=== PATIENT | female | born 1945 | race Caucasian/White ===

== ENCOUNTER 2017-04-21 09:32 | Emergency (ER) | payer MEDICARE, BC ==
[2017-04-21 10:09] LABS: URINE APPEARANCE SL CLOUDY; URINE BILIRUBIN NEGATIVE (NEGATIVE); URINE BLOOD NEGATIVE (NEGATIVE); URINE COLOR YELLOW; URINE GLUCOSE (UA) NEGATIVE (NEGATIVE); URINE KETONE NEGATIVE (NEGATIVE); URINE LEUKOCYTE ESTERASE TRACE (NEGATIVE); URINE NITRITE NEGATIVE (NEGATIVE); URINE PROTEIN NEGATIVE (NEGATIVE); URINE UROBILINOGEN 0.2 E.U./dL (0.20 - 1.00)
[2017-04-21 10:19] LABS: URINE EPITHELIAL CELLS 0 - 2 (FEW); URINE RBC NONE SEEN (NONE SEEN); URINE WBC 0 - 2 (0-2/hpf)
[2017-04-21 10:20] LABS: URINE BACTERIA NONE SEEN
--- NOTE | 2017-04-21 10:20 | Emergency Department Record ---
History of Present Illness - General Chief Complaint: Back Pain/Injury Stated Complaint: R SIDE/ BACK PAIN Time Seen by Provider: 04/21/17 10:13 Source: Patient, RN notes reviewed - History of Present Illness Initial Comments: right flank pain and finished antibotic apr 11 for a UTI (macrobid) . 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 Patient had a tylenal #3 her 's medication and the pain felt better. Patient moving slowly and worse with bending over and the pain is located in the right L2 area to L5 area of the back. Onset/Timin -: Days(s) Severity: Moderate Severity scale (1-10): 10 Quality: Aching Consistency: Constant, Getting worse Improves With: Other Worsens With: Sitting upright - Related Data Previous Rx's Medication Instructions Recorded Acetaminop W/ Codeine 300/30Mg 1 tab PO Q4H #30 tab 04/21/17 [Tylenol #3] Cyclobenzaprine HCl [Flexeril] 5 mg PO TID #30 tab 04/21/17 Cyclobenzaprine HCl [Flexeril] 5 mg PO TID #30 tablet 04/21/17 Allergies Allergy/AdvReac Type Severity Reaction Status Date / Time Sulfa (Sulfonamide AdvReac HYPERSENSIT Verified 04/21/17 09:49 Antibiotics) IVITY Travel Screening - Travel/Exposure Within Last 30 Days Have you traveled within the last 30 days?: No - Travel/Exposure Within Last Year Have you traveled outside the [place] in the last year?: No - Additonal Travel Details Have you been exposed to anyone with a communicable illness?: No - Travel Symptoms Symptom Screening: None Review of Systems Reviewed: No additional complaints except as noted below Constitutional: Reports: As per HPI. Denies: Chills, Fever, Malaise, Night sweats, Weakness, Weight change Eyes: Reports: As per HPI. Denies: Eye discharge, Eye pain, Photophobia, Vision change ENT: Reports: As per HPI. Denies: Congestion, Dental pain, Ear pain, Epistaxis , Hearing loss, Throat pain Respiratory: Reports: As per HPI. Denies: Cough, Dyspnea, Hemoptysis, Stridor, Wheezes Cardiovascular: Reports: As per HPI. Denies: Arrhythmia, Chest pain, Dyspnea on exertion, Edema, Murmurs, Orthopnea, Palpitations, Paroxysmal nocturnal dyspnea, Rheumatic Fever, Syncope Endocrine: Reports: As per HPI. Denies: Fatigue, Heat or cold intolerance, Polydipsia, Polyuria Gastrointestinal: Reports: As per HPI. Denies: Abdominal pain, Constipation, Diarrhea, Hematemesis, Hematochezia, Melena, Nausea, Vomiting Genitourinary: Reports: As per HPI. Denies: Abnormal menses, Discharge, Dyspareunia, Dysuria, Frequency, Hematuria, Incontinence, Retention, Urgency Musculoskeletal: Reports: As per HPI, Back pain. Denies: Arthralgia, Gout, Joint swelling, Myalgia, Neck pain Skin: Reports: As per HPI. Denies: Bruising, Change in color, Change in hair/ nails, Lesions, Pruritus, Rash Neurological: Reports: As per HPI. Denies: Abnormal gait, Confusion, Headache, Numbness, Paresthesias, Seizure, Tingling, Tremors, Vertigo, Weakness Psychiatric: Reports: As per HPI. Denies: Anxiety, Auditory hallucinations, Depression, Homicidal thoughts, Suicidal thoughts, Visual hallucinations Hematological/Lymphatic: Reports: As per HPI. Denies: Anemia, Blood Clots, Easy bleeding, Easy bruising, Swollen glands Past Medical History - SOCIAL HISTORY Smoking Status: Former smoker Alcohol Use: Occasional Drug Use: None - RESPIRATORY Hx Respiratory Disorders: No - CARDIOVASCULAR Hx Cardio Disorders: Yes Hx Deep Vein Thrombosis: Yes (LLE) - NEURO Hx Headaches: Yes - GI Hx GI Disorders: No - Hx Genitourinary Disorders: No - ENDOCRINE Hx Endocrine Disorders: No - MUSCULOSKELETAL Hx Arthritis: Yes Hx Osteoporosis: Yes - PSYCH Hx Psych Problems: No - HEMATOLOGY/ONCOLOGY Hx Hematology/Oncology Disorders: No Family Medical History Any Significant Family History?: Yes Physical Exam - General General Appearance: Alert, Oriented x3, Cooperative, Mild distress - Head Head exam: Normal inspection - Eye Eye exam: Normal appearance, PERRL Pupils: Normal accommodation - ENT ENT exam: Normal exam, Mucous membranes moist, Normal external ear exam, Normal orophraynx, TM's normal bilaterally Ear exam: Normal external inspection. negative: External canal tenderness Nasal Exam: Normal inspection. negative: Discharge, Sinus tenderness Mouth exam: Normal external inspection, Tongue normal Teeth exam: Normal inspection. negative: Dental caries Throat exam: Normal inspection. negative: Tonsillar erythema, Tonsillar exudate - Neck Neck exam: Normal inspection, Full ROM. negative: Tenderness - Respiratory Respiratory exam: Normal lung sounds bilaterally. negative: Respiratory distress - Cardiovascular Cardiovascular Exam: Regular rate, Normal rhythm, Normal heart sounds - GI/Abdominal GI/Abdominal exam: Soft, Normal bowel sounds. negative: Tenderness - Rectal Rectal exam: Deferred - exam: Deferred - Extremities Extremities exam: Normal inspection, Full ROM, Normal capillary refill. negative: Tenderness - Back Back exam: Reports: Normal inspection, Full ROM, Muscle spasm, Paraspinal tenderness, Tenderness. Denies: Rash noted - Neurological Neurological exam: Alert, Normal gait, Oriented X3, Reflexes normal - Psychiatric Psychiatric exam: Normal affect, Normal mood - Skin Skin exam: Dry, Intact, Normal color, Warm Course Vital Signs 04/21/17 09:38 Temperature 97.7 F Pulse Rate 71 Respiratory 16 Rate Blood Pressure 147/79 Pulse Ox 100 patient wants pills instead of a shot for her back pain and she is on elliquis for a DVT in the left leg one month ago. Medical Decision Making - Lab Data Lab Results 04/21/17 Range/Units 10:07 Urine Color Yellow Urine Appearance Sl cloudy Urine pH 7.0 (5.0-8.0) Ur Specific [place] 1.010 (1.002-1.030) Urine Protein Negative (NEGATIVE) Urine Glucose (UA) Negative (NEGATIVE) Urine Ketones Negative (NEGATIVE) Urine Blood Negative (NEGATIVE) Urine Nitrite Negative (NEGATIVE) Urine Bilirubin Negative (NEGATIVE) Urine Urobilinogen 0.2 (0.20 - 1.00) E.U./dL Ur Leukocyte Esterase Trace H (NEGATIVE) Disposition Clinical Impression: Lumbar strain Qualifiers: Encounter type: initial encounter Qualified Code(s): S39.012A - Strain of muscle, fascia and tendon of lower back, initial encounter Disposition: Home, Self-Care Condition: (1) Good Instructions: Low Back Strain (ED) Additional Instructions: follow up with family in one week Prescriptions: Acetaminop W/ Codeine 300/30Mg [Tylenol #3] 1 tab PO Q4H #30 tab Cyclobenzaprine HCl [Flexeril] 5 mg PO TID #30 tablet Cyclobenzaprine HCl [Flexeril] 5 mg PO TID #30 tab Forms: Patient Portal Access Time of Disposition: 10:42 Quality - Quality Measures Quality Measures: N/A - Blood Pressure Screening Does Patient Have Any of the Following: No Blood Pressure Classification: Hypertensive Reading Systolic Measurement: 147 Diastolic Measurement: 79 Screening for High Blood Pressure: < First Hypertensive BP, F/U Documented > [ G8950] First Hypertensive Follow-up Interventions: Referral to alternative/primary care provider.
== END 2017-04-21 10:54 | disposition home or self-care (01) ==
LOC: ER 09:32
DX: S39.012A Strain of muscle, fascia and tendon of lower back, initial encounter (principal); X50.0XXA Overexertion from strenuous movement or load, initial encounter; Y90.0 Blood alcohol level of less than 20 mg/100 ml; Z79.01 Long term (current) use of anticoagulants
CPT/HCPCS: 81001; 99282

== ENCOUNTER 2017-10-11 06:28 | Day surgery (SDC) | payer MEDICARE, BC ==
[2017-10-11] MEDS ORDERED: PROPOFOL 10 MG/ML VIAL IV ONE (06:29)
[2017-10-11] MEDS ORDERED: LIDOCAINE 2% MDV (20MG/ML) 20ML VIAL IV ONE (06:29)
--- NOTE | 2017-10-14 13:30 | Operative Note ---
DATE OF SERVICE: 10/11/2017. DATE OF SURGERY: 10/11/2017. REQUESTING PHYSICIAN: Joseph Rome MD. Surgeon: Sascha Wick MD. OPERATION: Colonoscopy. Indication for Procedure: This is a 71-year-old female with average risk for colorectal cancer, who presented for subsequent screening colonoscopy. POSTOPERATIVE DIAGNOSES: 1. Suboptimal bowel preparation. 2. Left-sided colonic diverticulosis.3. Grade 1 internal hemorrhoids. SEDATION: Sedation is per Anesthesia. Pulse oximetry was monitored throughout the duration of the procedure to maintain O2 saturation of 90% or greater. Supplemental oxygen was administered via nasal cannula. Cardiac and vital signs were monitored throughout the duration of the procedure, and they were stable. PROCEDURE: The general procedure of colonoscopy, risks and alternatives to the procedure, including the risks of bleeding and perforation among others, were explained to the patient; she voiced understanding and agrees to have the procedure done. Physical examination was performed. She was found stable for sedation. The patient was then placed in the left lateral position and sedation was initiated. Digital rectal exam was performed and showed small external hemorrhoids with no palpable rectal masses. An Olympus PCF1 80AL colonoscope was then inserted into the rectum and under direct visualization was advanced to the cecum without difficulty. The ileocecal valve and appendiceal orifice were identified and photographed. The colonic mucosa was carefully examined upon introduction of the colonoscope. There were scattered diverticula noted in the sigmoid and descending colon. The bowel preparation was, however, suboptimal, especially in the right colon, but enough to rule out any significant lesions. The colonoscope was then withdrawn very carefully, re-examining the colonic mucosal surfaces. No other lesions were noted. In the rectum, retroflexion maneuver was performed, and Grade 1 internal hemorrhoids were noted. The colonoscope was then withdrawn, and the procedure was terminated. The patient tolerated the procedure well, without immediate complications. She remained with stable vital signs and was transferred into the recovery room. PLAN AND RECOMMENDATIONS:1. Patient is to be on a high fiber diet.2. She is to have repeat colonoscopy for screening in 10 years.Thank you for allowing me to participate in the care of your patient. CC: MD Joseph Nava MD [facility] CENTERFannie
== END 2017-10-11 08:43 | disposition home or self-care (01) ==
LOC: HOP 06:28
PROVIDERS: ATTEND Internal Medicine Gastroenterology
DX: Z12.11 Encounter for screening for malignant neoplasm of colon (principal); K57.90 Diverticulosis of intestine, part unspecified, without perforation or abscess without bleeding; K64.8 Other hemorrhoids
CPT/HCPCS: 00812; G0121

== ENCOUNTER 2017-12-09 06:18 | Emergency (ER) | payer MEDICARE, BC ==
--- NOTE | 2017-12-09 06:38 | Emergency Department Record ---
History of Present Illness - General Chief complaint: Bite Insect/other Stated complaint: BUG BITE LEFT ANKLE Time Seen by Provider: 12/09/17 06:26 Source: Patient Mode of Arrival: Ambulatory Limitations: No limitations - History of Present Illness Initial comments: The patient noticed a wound to the L medial ankle about 2 weeks ago while [place] over [place] weekend. She states she looked down and pulled a white scab off the area. The area then became more painful and she was seen at the about 10 days ago and treated with Mupirocin ointment and oral doxycycline. Now the area appears to be getting more painful and swollen. There has been no fever , chills, or drainage from the wound. MD complaint: Insect bite/sting, Rash Onset/Timin -: Week(s) Severity: Mild - Related Data Previous Rx's Medication Instructions Recorded Clindamycin HCl [Cleocin HCl] 300 mg PO QID #28 capsule 12/09/17 Allergies Allergy/AdvReac Type Severity Reaction Status Date / Time Sulfa (Sulfonamide AdvReac "they just Unverified 12/10/17 16:42 Antibiotics) don't work on me" Travel Screening - Travel/Exposure Within Last 30 Days Have you traveled within the last 30 days?: No - Travel/Exposure Within Last Year Have you traveled outside the [place] in the last year?: No - Additonal Travel Details Have you been exposed to anyone with a communicable illness?: No - Travel Symptoms Symptom Screening: None Review of Systems Constitutional: Denies: Chills, Fever Eyes: Denies: Eye discharge Past Medical History - SOCIAL HISTORY Smoking Status: Former smoker Alcohol Use: Occasional Drug Use: None - RESPIRATORY Hx Respiratory Disorders: No - CARDIOVASCULAR Hx Cardio Disorders: Yes Hx Deep Vein Thrombosis: Yes (LLE) - NEURO Hx Headaches: Yes - GI Hx GI Disorders: No - Hx Genitourinary Disorders: No - ENDOCRINE Hx Endocrine Disorders: No - MUSCULOSKELETAL Hx Arthritis: Yes Hx Osteoporosis: Yes - PSYCH Hx Psych Problems: No - HEMATOLOGY/ONCOLOGY Hx Hematology/Oncology Disorders: No Family Medical History Any Significant Family History?: No Physical Exam - General General Appearance: Alert, Oriented x3, Cooperative, No acute distress - Head Head exam: Atraumatic, Normocephalic - Eye Eye exam: Normal appearance, PERRL - Extremities Extremities exam: Full ROM, Tenderness, Other (There is no lymphangitis or erythematous streaking up the leg from the ankle. The L foot is NVI. ). negative: Normal inspection (There is a 3 mm circular superficial wound to the skin just posterior to the medial malleolus. There is 1 cm of surrounding erythema present. There is signficant tenderness present around the superficial wound. ), Calf tenderness, Joint swelling (There is no joint swelling or effusion.), Pedal edema Image of Feet: 1 - Area of central wound with 1 cm of surrounding erythema. Course Vital Signs 12/09/17 06:25 Temperature 98.3 F Pulse Rate [ 67 Pulse Ox Probe] Respiratory 18 Rate Blood Pressure 166/81 [Left Arm] Pulse Ox 98 - Reevaluation(s) Reevaluation #1: I did discuss the need to place the patient on oral Clindamycin and to continue the Abx cream. She is to see her family doctor for recheck later this week. 12/09/17 06:43 Disposition Disposition: Discharge Clinical Impression: Wound of skin Disposition: Home, Self-Care Condition: (2) Stable Instructions: Insect Bite or Sting (ED) Additional Instructions: Please take the oral Clindamycin as directed and continue to use the antibiotic cream. Please see your family doctor later this week for recheck and for possible further testing. Prescriptions: Clindamycin HCl [Cleocin HCl] 300 mg PO QID #28 capsule Forms: Patient Portal Access Time of Disposition: 06:45 Quality - Quality Measures Quality Measures: N/A - Blood Pressure Screening View Details: Yes Does Patient Have Any of the Following: No Blood Pressure Classification: Normal BP Reading Systolic Measurement: 119 Diastolic Measurement: 72 Screening for High Blood Pressure: < Normal BP, F/U Not Required > [G8783]
[2017-12-09] MEDS ORDERED: CLINDAMYCIN 600MG/50ML PREMIX 600 MG/50 ML BAG IVPB ONE (06:45)
--- NOTE | 2017-12-10 10:56 | RADIOLOGY REPORT ---
EXAM: LEFT ANKLE HISTORY: BUG BITE LEFT ANKLE WITH PAIN, REDNESS AND SWELLING FOR THREE WEEKS. NO TRAUMATIC INJURY. TECHNIQUE: Three views of the left ankle were obtained. Comparison: None. FINDINGS: There is some mild soft tissue swelling particularly medially. No fracture, dislocation, or destructive lesion seen. Moderate posterior calcaneal spur incidentally noted. There is probably some calcification of the plantar aponeurosis adjacent to the plantar surface of the calcaneus as well. IMPRESSION: 1. MILD SOFT TISSUE SWELLING MEDIALLY. 2. POSTERIOR CALCANEAL SPUR. JOB NUMBER: [id number] MTDD
== END 2017-12-09 08:05 | disposition home or self-care (01) ==
LOC: ER 06:18
DX: S90.562A Insect bite (nonvenomous), left ankle, initial encounter (principal); L03.116 Cellulitis of left lower limb; W57.XXXA Bitten or stung by nonvenomous insect and other nonvenomous arthropods, initial encounter; Z87.891 Personal history of nicotine dependence
CPT/HCPCS: 96365; 99284

== ENCOUNTER 2019-01-31 07:57 | Emergency (ER) | payer MEDICARE, BC ==
--- NOTE | 2019-01-31 08:11 | Emergency Department Record ---
History of Present Illness - General Chief complaint: Extremity Problem Stated complaint: LT LEG DISCOMFORT Time Seen by Provider: 01/31/19 08:04 Source: Patient - History of Present Illness Initial comments: Patient states she is here because of left leg pain and swelling. She has had vascular surgery on that leg about a year ago by Dr. Mathis because she states she has chronic venous stasis. She denies other symptoms such as chest pain, shortness of breath, difficulty breathing, nausea vomiting or abdominal pain. She is here for a doppler of her leg. - Related Data Allergies Allergy/AdvReac Type Severity Reaction Status Date / Time Sulfa (Sulfonamide AdvReac "they just Verified 01/31/19 08:04 Antibiotics) don't work on me" Review of Systems Reviewed: No additional complaints except as noted below Constitutional: Reports: As per HPI. Denies: Chills, Fever, Malaise, Night sweats, Weakness, Weight change Eyes: Reports: As per HPI. Denies: Eye discharge, Eye pain, Photophobia, Vision change ENT: Reports: As per HPI. Denies: Congestion, Dental pain, Ear pain, Epistaxis, Hearing loss, Throat pain Respiratory: Reports: As per HPI. Denies: Cough, Dyspnea, Hemoptysis, Stridor, Wheezes Cardiovascular: Reports: As per HPI. Denies: Arrhythmia, Chest pain, Dyspnea on exertion, Edema, Murmurs, Orthopnea, Palpitations, Paroxysmal nocturnal dyspnea, Rheumatic Fever, Syncope Endocrine: Reports: As per HPI. Denies: Fatigue, Heat or cold intolerance, Polydipsia, Polyuria Gastrointestinal: Reports: As per HPI. Denies: Abdominal pain, Constipation, Diarrhea, Hematemesis, Hematochezia, Melena, Nausea, Vomiting Genitourinary: Reports: As per HPI. Denies: Abnormal menses, Discharge, Dysp areunia, Dysuria, Frequency, Hematuria, Incontinence, Retention, Urgency Musculoskeletal: Reports: As per HPI. Denies: Arthralgia, Back pain, Gout, Joint swelling, Myalgia, Neck pain Skin: Reports: As per HPI. Denies: Bruising, Change in color, Change in hair/nails, Lesions, Pruritus, Rash Neurological: Reports: As per HPI. Denies: Abnormal gait, Confusion, Headache, Numbness, Paresthesias, Seizure, Tingling, Tremors, Vertigo, Weakness Psychiatric: Reports: As per HPI. Denies: Anxiety, Auditory hallucinations, Depression, Homicidal thoughts, Suicidal thoughts, Visual hallucinations Hematological/Lymphatic: Reports: As per HPI. Denies: Anemia, Blood Clots, Easy bleeding, Easy bruising, Swollen glands Past Medical History - SOCIAL HISTORY Smoking Status: Former smoker Drug Use: None - RESPIRATORY Hx Respiratory Disorders: No - CARDIOVASCULAR Hx Cardio Disorders: Yes Hx Deep Vein Thrombosis: Yes (LLE) - NEURO Hx Headaches: Yes - GI Hx GI Disorders: No - Hx Genitourinary Disorders: No - ENDOCRINE Hx Endocrine Disorders: No - MUSCULOSKELETAL Hx Arthritis: Yes Hx Osteoporosis: Yes - PSYCH Hx Psych Problems: No - HEMATOLOGY/ONCOLOGY Hx Hematology/Oncology Disorders: No Physical Exam - General General Appearance: Alert, Oriented x3, Cooperative, No acute distress - Head Head exam: Normal inspection - Eye Eye exam: Normal appearance, PERRL, EOMI. negative: Conjunctival injection, Nystagmus Pupils: Normal accommodation - ENT ENT exam: Normal exam, Mucous membranes moist, Normal external ear exam, Normal orophraynx, TM's normal bilaterally Ear exam: Normal external inspection. negative: External canal tenderness Nasal Exam: Normal inspection. negative: Discharge, Sinus tenderness Mouth exam: Normal external inspection, Tongue normal Teeth exam: Normal inspection. negative: Dental caries Throat exam: Normal inspection. negative: Tonsillar erythema, Tonsillar exudate - Neck Neck exam: Normal inspection, Full ROM. negative: Lymphadenopathy, Meningismus, Tenderness - Respiratory Respiratory exam: Normal lung sounds bilaterally. negative: Chest wall tenderness, Decreased breath sounds, Respiratory distress, Wheezes - Cardiovascular Cardiovascular Exam: Regular rate, Normal rhythm, Normal heart sounds - GI/Abdominal GI/Abdominal exam: Soft, Normal bowel sounds. negative: Tenderness - Rectal Rectal exam: Deferred - exam: Deferred - Extremities Extremities exam: Normal inspection, Full ROM, Normal capillary refill, Pedal edema (left leg), Tenderness (chronic vasular changes with healed ulcerations. Swelling without erythema left leg only, trace of warmth to that leg. No pallor or pulselessness.) - Back Back exam: Reports: Normal inspection, Full ROM. Denies: Muscle spasm, Rash noted, Tenderness - Neurological Neurological exam: Alert, Normal gait, Oriented X3, Reflexes normal - Psychiatric Psychiatric exam: Normal affect, Normal mood - Skin Skin exam: Dry, Intact, Normal color, Warm Course - Reevaluation(s) Reevaluation #1: The patient was informed that there is no doppler service here over the weekend. She was advised to go from here to [facility] or [facility] emergency departments to obtain a doppler of her left leg. 01/31/19 08:15 Reevaluation #2: SANDEEP Cardenas at [facility] who accepts her in transfer. 01/31/19 08:24 Medical Decision Making - Management Options MDM Management: Additional Work-up Planned (e.g. ADM/Transfer/OP Study) (Go to [facility] or [facility] emergency departments to obtain a doppler ultrasound of your left leg) Disposition Disposition: Transfer Clinical Impression: Swelling of left lower extremity Disposition: Acute Care Hospital Transfer Return To Work/School Note Provided: No Transfer To: [facility] Reason For Transfer: ultrasound of lower extremity Accepting Physician: Dr. Cardenas emergency department Time Discussed w/Accepting Physician: 08:21 Condition: (1) Good Additional Instructions: Go by car now to [facility] Emergency department for an ultrasound of your left leg. Dr. Cardenas has accepted your transfer. Quality - Quality Measures Quality Measures: N/A - Blood Pressure Screening Does Patient Have Any of the Following: No Systolic Measurement: ~ Screening for High Blood Pressure: < Normal BP, F/U Not Required > [G8783]
== END 2019-01-31 08:35 | disposition short-term general hospital (02) ==
LOC: ER 07:57
DX: R60.0 Localized edema (principal); M79.662 Pain in left lower leg; Z86.718 Personal history of other venous thrombosis and embolism
CPT/HCPCS: 99285

== ENCOUNTER 2019-02-17 13:01 | Emergency (ER) | payer MEDICARE, BC ==
[2019-02-17] MEDS ORDERED: HYDROCODONE/APAP 5/325MG TABLET PO ONE (13:30)
[2019-02-17] MEDS ORDERED: PREDNISONE 20 MG TAB PO ONE (13:35)
--- NOTE | 2019-02-17 13:38 | Emergency Department Record ---
History of Present Illness - General Chief Complaint: Back Pain/Injury Stated Complaint: BACK PAIN Time Seen by Provider: 02/17/19 13:22 Source: Patient Mode of Arrival: Ambulatory Limitations: No limitations - History of Present Illness Initial Comments: 73 yo female presents with back pain since bending over and feeling a pop. She denies numbness, tingling or weakness. She has at times had some pain radiate down the legs. No foot drop. No abdominal pain. The pain is sharp and occurs with movement. No fever. She was seen in the [place] office and called today with instructions to go to the ED. MD Complaint: Back pain, Back injury Onset/Timin -: Week(s) Place: Home Radiation: Buttocks, Right leg Severity: Severe Severity scale (1-10): 10 Quality: Sharp Consistency: Constant Improves With: None Worsens With: None Context: Bending Associated Symptoms: Denies other symptoms - Related Data Previous Rx's Medication Instructions Recorded Hydrocodone/APAP 5/325Mg [[place] 1 each PO Q6H #12 tab 02/17/19 5Mg/325Mg] Prednisone [Prednisone 20Mg] 20 mg PO BID #14 tab 02/17/19 Allergies Allergy/AdvReac Type Severity Reaction Status Date / Time Sulfa (Sulfonamide AdvReac "they just Unverified 02/16/19 15:38 Antibiotics) don't work on me" Travel Screening - Travel/Exposure Within Last 30 Days Have you traveled within the last 30 days?: No Review of Systems Constitutional: Denies: Chills, Fever, Malaise, Weakness Eyes: Denies: Eye discharge ENT: Denies: Congestion, Throat pain Respiratory: Denies: Cough Cardiovascular: Denies: Chest pain, Syncope Endocrine: Denies: Fatigue Gastrointestinal: Denies: Abdominal pain, Diarrhea, Nausea, Vomiting Genitourinary: Denies: Dysuria, Frequency, Hematuria, Incontinence, Urgency Musculoskeletal: Reports: As per HPI, Back pain, Myalgia Skin: Denies: Bruising, Change in color, Rash Neurological: Denies: Abnormal gait, Confusion, Numbness, Paresthesias, Tingling, Tremors, Weakness Psychiatric: Denies: Anxiety Hematological/Lymphatic: Denies: Easy bleeding, Easy bruising Past Medical History - SOCIAL HISTORY Smoking Status: Former smoker Alcohol Use: None Drug Use: None - RESPIRATORY Hx Respiratory Disorders: No - CARDIOVASCULAR Hx Cardio Disorders: Yes Hx Deep Vein Thrombosis: Yes (LLE) - NEURO Hx Neuro Disorders: Yes Hx Headaches: Yes - GI Hx GI Disorders: No - Hx Genitourinary Disorders: No - ENDOCRINE Hx Endocrine Disorders: No - MUSCULOSKELETAL Hx Musculoskeletal Disorders: Yes Hx Arthritis: Yes Hx Osteoporosis: Yes - PSYCH Hx Psych Problems: No - HEMATOLOGY/ONCOLOGY Hx Hematology/Oncology Disorders: No Family Medical History Any Significant Family History?: No Physical Exam - General General Appearance: Alert, Oriented x3, Cooperative, No acute distress Limitations: No limitations - Head Head exam: Atraumatic, Normal inspection - Eye Eye exam: Normal appearance. negative: Conjunctival injection, Scleral icterus - ENT ENT exam: Normal exam Ear exam: Normal external inspection Nasal Exam: Normal inspection Mouth exam: Normal external inspection - Neck Neck exam: Normal inspection - Respiratory Respiratory exam: Normal lung sounds bilaterally. negative: Respiratory distress - Cardiovascular Cardiovascular Exam: Regular rate, Normal rhythm, Normal heart sounds - GI/Abdominal GI/Abdominal exam: Soft. negative: Distended, Guarding, Tenderness - Rectal Rectal exam: Deferred - exam: Deferred - Extremities Extremities exam: Full ROM. negative: Normal inspection, Joint swelling, Pedal edema, Tenderness - Back Back exam: Reports: Normal inspection, Muscle spasm, Paraspinal tenderness, Tenderness, Vertebral tenderness (lower lumbar). Denies: CVA tenderness (R), CVA tenderness (L), Full ROM - Neurological Neurological exam: Alert, Normal gait, Oriented X3, Reflexes normal (+1 patellar ). negative: Motor sensory deficit - Psychiatric Psychiatric exam: Normal affect, Normal mood. negative: Agitated, Anxious - Skin Skin exam: Dry, Intact, Normal color, Warm Course Vital Signs 02/17/19 13:17 Temperature 98.2 F Pulse Rate 62 Respiratory 20 Rate Blood Pressure 114/69 Pulse Ox 99 - Reevaluation(s) Reevaluation #1: 02/17/19 15:03 The Lumbar XR was reviewed Multilevel degenerative changes greatest at L4-L5 Facet narrowing multilevel We discussed the findings and recommend follow up this as scheduled with her PCP Disposition Disposition: Discharge Clinical Impression: Lumbar spine strain Disposition: Home, Self-Care Condition: (1) Good Instructions: Low Back Strain (ED) Additional Instructions: Call your doctor for the next available follow up appointment Review this ER visit and the tests performed with your family doctor Return to the ER for a recheck if worse, any new concerns or questions You may need further testing if the back pain continues. Consider MRI with your doctor as an outpatient. Take the prescriptions provided as directed Prescriptions: Hydrocodone/APAP 5/325Mg [[place] 5Mg/325Mg] 1 each PO Q6H #12 tab Prednisone [Prednisone 20Mg] 20 mg PO BID #14 tab Forms: Patient Portal Access Time of Disposition: 15:06 Quality - Quality Measures Quality Measures: N/A - Blood Pressure Screening Does Patient Have Any of the Following: No Blood Pressure Classification: Normal BP Reading Systolic Measurement: 114 Diastolic Measurement: 69 Screening for High Blood Pressure: < Normal BP, F/U Not Required > [[id number]]
--- NOTE | 2019-02-18 10:01 | RADIOLOGY REPORT ---
EXAM: LUMBAR SPINE, FIVE VIEWS HISTORY: LOW BACK PAIN RADIATING TO BOTH HIPS AND RIGHT LEG, PAIN AFTER BENDING DOWN SIX DAYS AGO, PAIN WITH MOTION. TECHNIQUE: Five views of the lumbar spine were obtained. Comparison: No prior exams available for comparison. FINDINGS: Five views of the lumbar spine demonstrate no acute displaced fracture or pathologic subluxation. There is mild multilevel disk space narrowing present with end plate spurring. Very mild broad based levoconvex scoliosis is present. Marked facet arthrosis is present with apparent severe neural foraminal narrowing at L5-S1, moderate spurring involving L4-L5. The hip joint spaces are preserved as are the sacroiliac joints. Marked colonic stool is present. IMPRESSION: 1. NO ACUTE DISPLACED FRACTURE. 2. MODERATE TO MARKED MULTILEVEL DEGENERATIVE CHANGES OF THE LUMBAR SPINE. JOB NUMBER: [id number] MTDD
== END 2019-02-17 15:49 | disposition home or self-care (01) ==
LOC: ER 13:01
DX: S33.5XXA Sprain of ligaments of lumbar spine, initial encounter (principal); M51.36 Other intervertebral disc degeneration, lumbar region; X50.1XXA Overexertion from prolonged static or awkward postures, initial encounter; Y92.009 Unspecified place in unspecified non-institutional (private) residence as the place of occurrence of the external cause; Z86.718 Personal history of other venous thrombosis and embolism; Z87.891 Personal history of nicotine dependence
CPT/HCPCS: 72110; 99283; J7512